=== PATIENT | male | born 1955 | race Caucasian/White ===

== ENCOUNTER 2023-04-12 10:45 | Outpatient (CLI) | payer MEDICARE, SELFPAY ==
--- NOTE | ~2023-04-12 | XR_ITS ---
Lumbosacral Spine: AP and lateral views Clinical History: Pain Findings: The normal lordotic curve is maintained. There is posterior fusion from L4 to L5, bilateral rods and transpedicular screws present. Probable minimal grade 1 anterolisthesis of L4 over L5 prese nt. Intervertebral disc spaces are relatively well-preserved. The sacroiliac joints are normally outl ined. Impression: Posterior fusion from L4 to L5, with probable minimal grade 1 anterolisthesis at this level. Reviewed, dictated and finalized at location M. OSTAT OPERATOR Impression: Posterior fusion from L4 to L5, with probable minimal grade 1 anterolisthesis a t this level.
== END 2023-04-12 10:46 ==
PROVIDERS: PCP Anesthesiology Pain Medicine; Visit Provider Anesthesiology Pain Medicine
DX: M54.16 Radiculopathy, lumbar region (principal); Z98.1 Arthrodesis status
CPT/HCPCS: 72100

== ENCOUNTER 2023-05-03 09:41 | Outpatient (CLI) | payer MEDICARE, SELFPAY ==
--- NOTE | ~2023-05-03 | MR_ITS ---
MRI of the lumbar spine Clinical History: Radiculopathy Technique: Axial T2-weighted images, and sagittal T1-weighted, T2-weighted, and T2 fat-sat images wer e acquired. Findings: No acute fracture or subluxation seen. There is posterior fusion from L4 to L5, with bilate ral rods and transpedicular screws present. Probable posterior decompression at L4. No suspicious bon e marrow signal abnormality seen. At L1-L2, there is no disc bulge or herniation. There is mild to moderate facet arthropathy. No centr al canal stenosis or neural foraminal narrowing. At L2-L3, there is no disc bulge or herniation. There is mild to moderate facet arthropathy. No centr al canal stenosis or neural foraminal narrowing. At L3-L4, there is diffuse disc bulge with superimposed central disc protrusion/extrusion. This resul ts in moderate spinal canal stenosis/thecal sac compression. There is moderate right neural foraminal narrowing, and minimal left neural foraminal narrowing. At L4-L5, there is minimal disc bulge. No central canal stenosis. There is mild right neural foramina l narrowing. Left neural foramen preserved. At L5-S1, there is no disc bulge or herniation. There is moderate facet arthropathy. No central canal stenosis or definite neural foraminal narrowing. There are postoperative changes in the posterior paravertebral soft tissues. Impression: Advanced degenerative spondylosis at L3-L4 level, as detailed above. Posterior fusion from L4 to L5, as detailed above. Reviewed, dictated and finalized at [facility]. ITURE PAINTER Impression: Advanced degenerative spondylosis at L3-L4 level, as detailed above. Posterior fusion from L4 to L5, as detailed above.
== END 2023-05-03 09:42 ==
LOC: MICIMG 09:43
PROVIDERS: PCP Anesthesiology Pain Medicine; Visit Provider Anesthesiology Pain Medicine
DX: M47.26 Other spondylosis with radiculopathy, lumbar region (principal); Z98.1 Arthrodesis status
CPT/HCPCS: 72148

== ENCOUNTER 2024-11-19 14:43 | Outpatient (CLI) | payer MEDICARE, SELFPAY ==
--- OUTSIDE RECORDS SUMMARY | 2006-11-14 09:40 | XMS_ITS | Continuity of Care Document ---
Author Organization [facility] Address [address] [place] [address] Phone Care Team Providers Care Disposal Plant Operator Name Role Phone [facility] Unavailable Unavailable Procedures Procedure Date MRI upr extr joint, w/o contrast 2006 Advance Directives Directive Yes / No Effective Date File Name No Information Encounters Encounter Description Practice Location Reason(s) For Visit Diagnoses Date Provider Providers Copied on Encounter [facility], [address], [place], [id number], tel:[phone] [facility] No Information [facility]. [address], [place], [place], [id number], . tel:[phone] Referring Provider: Edi Mcintyre MD S, [address], [place], [address] . tel:[phone] Family History Family Member Type Diagnosis Age At Onset No Information Payers Payer name Insurance type Covered democrat ID Authorhelena thelma(s) [facility] [id number] Social History Type Description Quantity Date Captured Comments Sex Male Smoking Status No Information Chief Complaint And Reason For Visit No Information Reason For Referral Reason For Referral No Information History Of Present Illness Encounter Date Complaint History Of Prese nt Illness No Information Functional Status Date Functional Assessmen t No Information Instructions Date Instruction Additional Infor mation No Information Assessments Type Assessment Date No Information Patient Care Teams Name Effective Dates (start - stop) Status Members No Information
--- OUTSIDE RECORDS SUMMARY | 2006-12-10 03:35 | XMS_ITS | Continuity of Care Document ---
Author Organization [facility] Address [address] [place] [address] Phone Care Team Providers Care Scheduling Clerk Name Role Phone Francisco Javier GONZALEZ MD, Edi Unavailable Unavailable Procedures Procedure Date Office/outpatient visit,est, mod 2006 Supplemental Report Office/outpatient visit,est, mod 2006 Supplemental Report Office/outpatient visit,est, mod 2006 Supplemental Report Office consultation, moderate Drain/inject intermed joint/bursa Depo Medrol Methylprednisolone 40 MG inj Advance Directives Directive Yes / No Effective Date File Name No Information Encounters Encounter Description Practice Location Reason(s) For Visit Diagnoses Date Provider Providers Copied on Encounter Office/outpat ient visit,est, [facility] [address] [facility], [address], [id number], tel:[phone] [facility] No Information 7 Francisco Javier Daley. [address], [id number] , [place]. tel: [phone] Office/outpat ient visit,est, [facility] [address] [facility], [address] [place] [address], [id number], [place] tel:[phone] [facility] No Information 7 Francisco Javier Daley. [address] [facility], [address], [id number] , [place]. tel: [phone] Office/outpat ient visit,est, mod [facility], [address] [address], [place], [place], [id number], [phone] [facility] No Information 7 Francisco Javier Daley. [address] [facility], [place], [place], [id number] , [place]. tel: [phone] Office consultation, moderate [facility] [address] [facility], [address] [facility] [address], [place], [place], [id number], tel:[phone] [facility] No Information 7 Francisco Javier Daley. [address] [facility] [address], [place], [place], [id number] , [place]. tel: [phone] Family History Family Member Type Diagnosis Age At Onset No Information Payers Payer name Insurance type Covered republican ID Daly renee(s) Danny [id number] Social History Type Description Quantity Date Captured [...]
--- OUTSIDE RECORDS SUMMARY | 2009-12-16 08:15 | XMS_ITS | Continuity of Care Document ---
Author Organization [facility] Address [address] [place] [address] Phone Care Team Providers Care Campus Security Officer Name Role Phone Shay Hernandez Unavailable Unavailable Procedures Procedure Date Eye Exam & Treatment Ophthalmoscopy, Subsequent Ophthalmoscopy, Subsequent Optic Nerve Topography Optic Nerve Topography Office/outpatient Visit, Est Visual Field Examination(s) Corneal Pachymetry Eye Exam & Treatment Refraction Advance Directives Directive Yes / No Effective Date File Name No Information Encounters Encounter Description Practice Location Reason(s) For Visit Diagnoses Date Provider Providers Copied on Encounter [facility], [address], [place], [place], [id number], [place] tel:[phone] [facility] No Information 0-201 0 David Day. [address] [place], [address], [place]. tel:[phone] Referring Provider: Hoang Dejesus [address], [place], [address]. tel:[phone] Office/outpat ient Visit, Est [facility], [address], [place], [place], [id number], [place] tel:[phone] [facility] No Information 3-201 0 Braden Bolton. [address], [place], [place], [facility], . tel:[phone] [facility], [address] [place] [address] [address], [place], [place], [id number], tel:[phone] [facility] No Information 0 Tamika Michael. [address] [place] [address], [facility], . tel:[phone] Referring Provider: Michael romero, [address] [place] [address], [facility]. tel:[phone] [facility], [address], [place], [place], [id number], tel:[phone] [facility] No Information 0 Krishnasamy Michael. [address] [place] [address], [facility], . tel:[phone] Family History Family Member Type Diagnosis Age At Onset No Information Payers Payer name Insurance type Covered libertarian ID Authoriza tion(s) No Information Social History Type Description Quantity Date Captured [...]
--- NOTE | ~2024-11-19 | CT_ITS ---
EXAMINATION: CT lung screening DATE: 11/19/2024 15:14 INDICATION: Cocaine dependence TECHNIQUE: Computed tomography (CT) of the chest was performed without intravenous contrast. The dose-length product was 99.97 mGy-cm. Automated exposure control and iterative reconstruction technique were employed. COMPARISON: None FINDINGS: No thoracic lymphadenopathy. No significant pleural or pericardial effusion. Heart size normal. There is chronic granulomatous disease involving the lungs, mediastinum, liver and spleen. No endobronchial lesions. There is dependent atelectasis. Mild thoracic spondylosis. No acute bone or joint abnormality. IMPRESSION: 1. Lung-RADS category 1: Negative. Continue annual screening with noncontrast low-dose chest CT in 12 months. Reviewed, dictated and finalized at location O. IMPRESSION: 1. Lung-RADS category 1: Negative. Continue annual screening with noncontrast l ow-dose chest CT in 12 months.
--- OUTSIDE RECORDS SUMMARY | 2024-11-19 16:14 | XMS_ITS | Clinical Summary ---
Author Organization [facility] Address [address] [place] [address] Care Team Providers Care Web Operations Administrator Name Role Phone Neil Kevin MD Primary Care Provider Allergies Active Allergy Reactions Criticality Noted Date Comments Lisinopril Diarrhea Low 12/16/2018 Tetracyclines Unknown 05/11/2017 Cant function, pt feels drunk while taking Medications atorvastatin (LIPITOR) 80 mg tablet Take 80 mg by mouth nightly. Active irbesartan (AVAPRO) 300 mg tablet Take 300 mg by mouth daily with lunch. Active venlafaxine (EFFEXOR) 75 mg tablet Take 75 mg by mouth health teacher before breakfast. Active hydroCHLOROthiazid e (HYDRODIURIL) 12.5 mg tablet Take 12.5 mg by mouth health teacher before breakfast. Active guaiFENesin-pseudo ephedrine (MUCINEX D) 600-60 mg per 12 hr tablet Take 1 tablet by mouth 2 (two) times a day as needed for allergies Active clorazepate (TRANXENE) 7.5 mg tabletIndications: patient to clear per PCP before resuming this medication Take 1 tablet (7.5 mg total) by mouth nightly. 07/14/19 18 Active insulin glargine (LANTUS,BASAGLAR) 100 unit/mL (3 mL) insulin pen Inject 58 Units under the skin health teacher before breakfast Active amLODIPine (NORVASC) 2.5 mg tablet Take 2.5 mg by mouth daily 4 05/07/19 19 Active ACCU-CHEK GUIDE strip USE TO TEST ONCE DAILY 4 05/10/19 19 Active ACCU-CHEK GUIDE GLUCOSE METER misc as directed 0 05/10/19 19 Active ACCU-CHEK FASTCLIX LANCET DRUM misc USE TO TEST ONCE DAILY 1 05/10/19 19 Active BD ULTRA-FINE SHORT PEN NEEDLE 31 gauge x 5/16 needle INJECT NIGHTLY WITH LANTUS SOLOSTAR PEN 3 04/17/19 19 Active cholecalciferol, vitamin D3, 1,000 unit tablet,chewable Take 1 tablet/chew tab by mouth daily Active metoprolol XL (TOPROL-XL) 50 mg 24 hr tablet Take 50 mg by mouth daily Active acetaminophen-code ine (TYLENOL-CODEINE #3) 300-30 mg per tablet every 6 hours Active benzonatate (TESSALON) 200 mg capsule every 8 hours Active escitalopram (LEXAPRO) 20 mg tablet daily Active ondansetron ODT (ZOFRAN-ODT) 4 mg disintegrating tablet DISSOLVE 1 TABLET ON THE TONGUE EVERY 8 HOURS 0 11/09/19 19 Active teriparatide (FORTEO) 20 mcg/dose - 600 mcg/2.4 mL injection 0.08 mL daily Active promethazine-codei ne (PHENERGAN with CODEINE) 1.25-2 mg/mL syrup promethazine 6.25 mg-codeine 10 mg/5 mL syrup Take 5 ML EVERY 6 HOURS by oral route PRN for cough Active tiZANidine (ZANAFLEX) 4 mg tablet TAKE 1 TABLET BY MOUTH EVERY 8 HOURS NEEDED FOR MUSCLE SPASM 90 tablet 2 01/09/20 19 Active metFORMIN (GLUCOPHAGE) 1,000 mg tablet Take 1,000 mg by mouth 2 (two) times a day 04/01/19 20 Active Active Problems Problem Noted Date Diagnosed Date Lumbar post-laminectomy syndrome 09/10/2018 Assessment & Plan (07/09/2019 1:27 PM CDT): Mr. Mckenzie is clinically doing well after L4-5 revision surgery. He has some recurrence of back pain and proximal right leg pain which seems related to the block ureter. He underwent nephrolithiasis on Sunday and is recovering from this. He reports improvement in his symptoms postoperatively. I plan to see him back in four months time with AP and lateral lumbar spine films at that time with flexion-extension. Assessment & Plan (01/08/2019 1:21 PM CDT): Mr. Mckenzie is status post L4-5 laminectomy and fusion with subsequent revision. The hardware seems solid with no lucency. I think there is some bridging bone seen on the lateral x-ray. I plan to see him back in six months with a CT scan to fully assess bony fusion. We will give him a script for physical therapy for back stretching and strengthening. From a spine standpoint, I think that he can return to work. He has several other medical issues and I would defer to Dr. Kevin for return to work based on his medical issues as a whole. I have asked him to follow-up with the [facility] to restart his [employer]. Assessment & Plan (11/26/2018 2:26 PM CDT): PLAN: 1. Start physical therapy/home exercise program 2. Discontinue brace, may increase activity as tolerated and may resume anti-inflammatories. 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 tSacy in 6 weeks with Flexion/Extension Lumbar spine films and to discuss return to work as light duty is unavailable. Explained to the patient that we do not follow/fill out his long-term disability paperwork. This should be followed by his primary care provider. We will be happy to support his claim with our office notes. Patient verbalized understanding. Assessment & Plan (09/10/2018 11:36 AM CDT): PLAN: 1. Continue activity restrictions as outlined prior to surgery. Continue to hold on driving at this time. 2. Renew medications: none 3. Continue brace. FOLLOW UP APPT: With Dr. Stacy on October 08 with a set of AP and lateral lumbar spine films. Resolved Problems Problem Noted Date Diagnosed Date Resolved Date Lumbar disc herniation with radiculopathy 07/29/2018 09/10/2018 Overview (07/29/2018): Added automatically from request for surgery [id number] Intervertebral disc disorder with radiculopathy of lumbar region 05/21/2018 9 Assessment & Plan (05/21/2018 12:53 PM CHOPPER GUN OPERATOR): Patient reports similar symptoms like with his previous surgery and I have reviewed his previous x-ray reports. There is questionability of a complete fusion at L4- 5, therefore I recommend a CT lumbar myelogram to assess for fusion and for adjacent level stenosis. Patient may continue to work in the same capacity as a power generation plant operator until further plan of care is established. I will review the results with Dr. Stayc and help formulate a further plan of care. We also discussed smoking cessation as this could lead to a nonunion. Lumbar stenosis with neurogenic claudication 8 09/10/2018 Assessment & Plan (10/08/2018 3:37 PM CDT): Mr. Mckenzie he is improved after lumbar re-exploration and revision of hardware fusion. We ended bone morphogenic protein to increase the chance of successful fusion. Patient is very aware that his continued smoking decreases the chance of a successful fusion and that his diabetes also decrease the chance of successful fusion. I have strongly encouraged him to stop smoking. He will follow-upwith Karlie in six weeks to discuss return work. 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 He may benefit from physical therapy or work hardening prior to return to work. Surgical History Surgery Date Site/Laterality Comments ROTATOR CUFF REPAIR Right KNEE ARTHROSCOPY x 3 FOOT SURGERY Right CARDIAC CATHETERIZATION 10/07/2014 Normal LVF with EF 60%, LAD 50% LUMBAR FUSION 06/17/2017 - 07/16/2017 L4-5 LUMBAR FUSION 08/17/2018 - 09/15/2018 L4-5 PSF/Revision (TJS) Medical History Medical History Date Comments Lumbar stenosis Diabetes mellitus (HCC) Depression Dyslipidemia Hypertension Nephrolithiasis Osteoarthritis Myocardial infarct (HCC) 2014 Lumbar disc herniation with radiculopathy Obesity (BMI 30.0-34.9) BMI 31 Tobacco abuse Seizure (HCC) 12/2018 x1 - ? diabetic seizure Family History Medical History Relation Name Comments Coronary artery disease Father Relation Name Status Comments Father Social History Tobacco Use Types Packs/Day Years Used Date Smoking Tobacco: Every Day Cigarettes 0.3 40 Smokeless Tobacco: Never Tobacco Cessation:Ready to Q uit: No; Counseling Given: Yes Comments:quit 05/02/2017 and restarted since 07/06/17; as of 10/08/18 - 5-6 cigs/day, 01/07/19 - 4 cigs/day Alcohol Use Standard Drinks/Week Comments Yes 0 (1 standard drink = 0.6 oz pure alcohol) socially- approx 2 drinks/month PHQ-2 Answer Date Recorded PHQ-2 Score 5 11/07/2018 Sex and Gender Information Value Date Recorded Sex Assigned at Not on file Legal Sex Male 2:32 PM CHOPPER GUN OPERATOR Gender Identity Not on file Sexual Orientation Not on file Obstetrics History Last Filed Vital Signs Vital Sign Reading Time Taken Comments Blood Pressure 166/66 11/26/2018 2:01 PM CDT Pulse 69 11/26/2018 2:01 PM CDT Temperature 36.7 C (98 F) 09/10/2018 11:11 AM CDT Respiratory Rate 12 01/07/2019 1:38 PM CDT Oxygen Saturation 99% 08/28/2018 12:26 PM CDT Inhaled Oxygen Concentration - - Weight 83.9 kg (185 lb) 05/14/2019 11:46 AM CHOPPER GUN OPERATOR Height 168.9 cm (5' 6.5) 05/14/2019 11:46 AM CS T Body Mass Index 29.41 05/14/2019 11:46 AM CHOPPER GUN OPERATOR Plan of Treatment Not on file Medical Devices Implanted Type Area Bulk Sausage Casing Tier Off Device Identifier Shelf Expiration Date Model / Serial / Lot Graft Bone H-Genin Demineralized Bone Matrix 10 Ml Crush Mix - [id number] - [id number] Implanted:Qty: 1 on 07/09/2017 by Edward Stacy MD at [facility] Bone N/A: Vertebrae [employer] 01/16/2019 -[facility] / [id number] / [id number] Screw Set [facility] Tl Screw System - [id number] Implanted:Qty: 2 on 08/27/2018 by Edward Stacy MD at [facility] Screw N/A: Spine Lumbar [employer] 01-SETSCRE W / / Screw Bone Terreton L40 Mm Od8.5 Mm Spine Pedicle Nonsterile 5500 Series - [id number] Implanted:Qty: 2 on 08/27/2018 by Edward Stacy MD at [facility] Screw N/A: Spine Lumbar Core Link [id number] / / Core Link [id number] Terreton Screw Set 5500 Series - [id number] Implanted:Qty: 2 on 08/27/2018 by Edward Stacy MD at [facility] Screw N/A: Spine Lumbar Core Link [id number] / / Screw 8.5mm X 40mm Srmlne Pedicle - [id number] Implanted:Qty: 2 on 08/27/2018 by Edward Stacy MD at [facility] Screw N/A: Spine Lumbar [employer] 01-PA-85-4 0 / / Screw Bone Terreton L40 Mm Od7 Mm Spine Pedicle Nonsterile 5500 Series - [id number] - [id number] Implanted:Qty: 4 on 07/09/2017 by Edward Stacy MD at [facility] N/A: Vertebrae Core Link [id number] / 0000 / Screw Set Terreton 5500 Series - [id number] Implanted:Qty: 4 on 07/09/2017 by Edward Stacy MD at [facility] N/A: Vertebrae Core Link [id number] / / Vitaliy Spinal Terreton L45 Mm Od5.5 Mm Prebent Line 5500 Series - [id number] Implanted:Qty: 2 on 07/09/2017 by Edward Stacy MD at [facility] N/A: Lumbar-Sacra l Spine Core Link [id number] / / Medtronic Sofamor Danek [id number] Infuse 18mm 26mm Absorbable Sponge Sterile Water Syringe Needle - [id number] Implanted:Qty: 1 on 08/27/2018 by Edward Stacy MD at [facility] N/A: Spine Lumbar Medtronic Sofamor Danek 12/17/2019 [id number] / / [id number] [employer] [id number] Inqu Paste Mix Plus Lithographer Apprentice 10cc Bone Graft Hyaluronic Acid Poly - [id number] Implanted:Qty: 1 on 08/27/2018 by Edward Stacy MD at [facility] N/A: Spine Lumbar [employer] 02/14/2020 [id number] / / [id number] Rti Surgical Inc 10-55-Pr-40 Quantum 5.5mm 40mm Prebent Vitaliy Spinal Titanium - [id number] Implanted:Qty: 1 on 08/27/2018 by Edward Stacy MD at [facility] N/A: Spine Lumbar [employer] 10-55-LA-4 0 / / Core Link [id number] Terreton 5.5mm 40mm Line Prebent Vitaliy Spinal Nonsterile 5500 Series - [id number] Implanted:Qty: 1 on 08/27/2018 by Edward Stacy MD at [facility] N/A: Spine Lumbar Core Link [id number] / / Insurance ACCESS Advance Directives For more information, please contact: [phone] * Full Code (Latest Code Status on File) Date Activated Date Inactivated Comments 08/27/2018 11:39 AM 08/28/2018 8:49 PM * Full Code Date Activated Date Inactivated Comments 07/09/2017 1:00 PM 07/13/2017 6:40 PM * Full Code Date Activated Date Inactivated Comments 07/09/2017 12:59 PM 07/09/2017 1:00 PM Care Teams Web Operations Administrator Relationship Specialty Start Date End Date Neil Kevin MD PCP - General 05/16/17
--- OUTSIDE RECORDS SUMMARY | 2024-11-19 16:14 | XMS_ITS | Patient Health Record ---
Author Organization [facility] Address [address] [place] [address] [place] [address] Care Team Providers Care Program Assistant Name Role Phone Bright- Thien DEL ROSARIO MD- DO NOT SEND Unavaila ble Unavailable Reason For Referral No Information Plan Of Treatment No Information Insurance Providers Payer Name Payer Address Payer Phone Subscriber Number Group Number Insured Name Patient Relationship to Insured Coverage Start Date Coverage End Date [facility] [id number] [place] [facility] [place] [address] [phone] [id number] Derek Mckenzie Self - patient is the insured [id number]
== END 2024-11-19 14:44 | disposition home or self-care (01) ==
PROVIDERS: PCP Internal Medicine; Visit Provider Internal Medicine
DX: Z12.2 Encounter for screening for malignant neoplasm of respiratory organs (principal); Z87.891 Personal history of nicotine dependence
CPT/HCPCS: 71271

== ENCOUNTER 2025-01-08 12:45 | Outpatient (CLI) | payer MEDICARE, SELFPAY ==
--- NOTE | ~2025-01-08 | MR_ITS ---
EXAMINATION: MR lumbar spine wo/w con DATE: 01/08/2025 13:37 INDICATION: Radiculopathy, lumbar region. TECHNIQUE: Magnetic resonance imaging (MRI) of the lumbar spine was performed without and with 15 mL MultiHance intravenous contrast. COMPARISON: Lumbar spine MRI 05/03/2023 FINDINGS: There is 3 degrees levocurvature of lumbar spine. There is 3 mm anterolisthesis of L4 on L5. There is mild chronic anterior wedging of T12 vertebral body. There are changes of posterior fusion procedure at L4-L5 with pedicle screws. There is moderately decreased disc height at L3-L4 and mildly decreased disc height at L4-L5. There is a laminectomy at L4 with 3.6 x 0.7 x 1.3 cm fluid collection in the surgical bed, consistent with seroma. The distal spinal cord signal intensity is normal. The conus medullaris is at L1. The following disc levels are specifically discussed: L1-L2: The disc is mildly bulging. There is mild bilateral facet joint osteoarthritis. There is mild bilateral neural foraminal stenosis. There is mild central canal stenosis. L2-L3: The disc is mildly bulging. There is moderate bilateral facet joint osteoarthritis. There is mild bilateral neural foraminal stenosis. There is no central canal stenosis. L3-L4: The disc is bulging and has an annular fissure. There is moderate bilateral facet joint osteoarthritis. There is moderate right and mild left neural foraminal stenosis. There is mild central canal stenosis. There is moderate stenosis of right lateral recess. L4-L5: The disc is bulging and has an annular fissure. There is mild right facet joint hypertrophy. There is mild bilateral neural foraminal stenosis. There is no central canal stenosis. L5-S1: The disc does not extend beyond the endplate margin. There is moderate bilateral facet joint osteoarthritis. There is no neural foraminal stenosis. There is no central canal stenosis. IMPRESSION: 1. Moderate lumbar spondylosis, stable from 05/03/2023. 2. Posterior fusion procedure at L4-L5. Reviewed, dictated and finalized at location E.
== END 2025-01-08 12:46 | disposition home or self-care (01) ==
LOC: MICIMG 12:46
PROVIDERS: PCP Internal Medicine; Visit Provider Nurse Practitioner Family
DX: M96.1 Postlaminectomy syndrome, not elsewhere classified (principal); M47.26 Other spondylosis with radiculopathy, lumbar region; Z98.1 Arthrodesis status
CPT/HCPCS: 72158; A9577